=== PATIENT | male | born 1985 | race Hispanic/Latino ===

== ENCOUNTER 2021-12-10 20:00 | Emergency (ER) | payer OTHER ==
[2021-12-10 20:41] LABS: HEMATOCRIT 43.2 % (39.0-50.0); HEMOGLOBIN 14.9 g/dl (14.0-18.0); IMMATURE GRANULOCYTES 0.1 % (0.0-5.0); MEAN CELL VOLUME 92.1 fL CALC (80.0-100.0); MEAN CORPUSCULAR HGB 31.8 pG CALC (26.0-32.0); MEAN CORPUSCULAR HGB CONC 34.5 g/dL CAL (32.0-36.0); NEUT# 6.01 thou/uL (1.82-7.42); RED BLOOD COUNT 4.69 mill/uL (4.70-6.10); RED CELL DISTRI WIDTH 12.5 % (11.5-15.5)
[2021-12-10 20:43] LABS: URINE BILIRUBIN - DIPSTICK NEGATIVE (NEGATIVE); URINE BLOOD DIPSTICK NEGATIVE (NEGATIVE); URINE COLOR YELLOW; URINE GLUCOSE - DIPSTICK NEGATIVE (NEGATIVE); URINE KETONE NEGATIVE (NEGATIVE); URINE LEUK ESTERASE NEGATIVE (NEGATIVE); URINE PROTEIN - DIPSTICK NEGATIVE (NEG-TRACE); URINE SPECIFIC GRAVITY >=1.030; URINE UROBILINOGEN - DIPSTICK 0.2 E.U./dL (0.2)
[2021-12-10 20:45] LABS: URINE NITRITE - DIPSTICK NEGATIVE (Negative)
[2021-12-10 20:55] LABS: ALBUMIN 4.1 g/dL (3.2-5.0); ALKALINE PHOSPHATASE 121 u/l (38-126); ANION GAP 13 (6-22 (CALC)); BILIRUBIN, TOTAL 0.4 mg/dL (0.0-1.4); BUN 11 mg/dL (9-20); BUN/CREATININE RATIO 12 (12-20 (CALC)); CARBON DIOXIDE 23 mmol/l (22-30); CHLORIDE 107 mmol/l (95-108); CREATININE 0.9 mg/dL (0.7-1.3); GFR > 60 ML/MIN (>=60 (CALC)); GFR FOR AFR.AMER. > 60 ML/MIN (>=60 (CALC)); POTASSIUM 3.6 mmol/l (3.5-5.1); SGOT/AST 27 u/l (17-59); SODIUM 140 mmol/l (137-146); TOTAL PROTEIN 7.1 g/dL (6.3-8.2)
[2021-12-10 21:06] LABS: MYOGLOBIN 21 ng/mL (0 - 121)
[2021-12-10] MEDS ORDERED: MECLIZINE25 MG PO (21:33)
[2021-12-10] MEDS ORDERED: VOLTAREN75 MG PO (21:33)
[2021-12-10 21:37] VITALS: BP 138/73
== END 2021-12-10 21:45 | disposition home or self-care (01) ==
LOC: ED 20:00
PROVIDERS: Family Medicine
DX: R42 Dizziness and giddiness (principal); R53.1 Weakness; G56.01 Carpal tunnel syndrome, right upper limb; G56.21 Lesion of ulnar nerve, right upper limb; Z20.822 Contact with and (suspected) exposure to COVID-19

== ENCOUNTER 2021-12-14 15:59 | Emergency (ER) | payer OTHER ==
[~2021-12-14] VITALS: Ht 180.3 cm; Wt 118.0 kg
[~2021-12-14 15:59] MED LIST: MECLIZINE25 MG PO; VOLTAREN75 MG PO
[2021-12-14 17:41] VITALS: BP 117/88
[2021-12-14] MEDS ORDERED: MAXITROL0.1 % OS (18:44)
[2021-12-14 18:59] VITALS: BP 117/88
== END 2021-12-14 18:59 | disposition home or self-care (01) ==
LOC: ED 15:59
DX: H10.12 Acute atopic conjunctivitis, left eye (principal)

== ENCOUNTER 2022-07-08 14:39 | Emergency (ER) | payer OTHER ==
[~2022-07-08] VITALS: Ht 180.3 cm; Wt 117.9 kg
[~2022-07-08 14:39] MED LIST changes: +MAXITROL0.1 % OS
[2022-07-08 15:01] VITALS: BP 122/81
[2022-07-08 15:30] VITALS: BP 127/88
[2022-07-08] MEDS ORDERED: NAPRELAN500 MG PO (15:55)
[2022-07-08] MEDS ORDERED: OMNICEF300 M1 PO (15:55)
[2022-07-08 15:59] VITALS: BP 127/88
== END 2022-07-08 16:11 | disposition home or self-care (01) ==
LOC: ED 14:39
DX: H66.91 Otitis media, unspecified, right ear (principal); I89.0 Lymphedema, not elsewhere classified

== ENCOUNTER 2022-09-01 00:41 | Emergency (ER) | payer OTHER ==
[~2022-09-01] VITALS: Ht 180.3 cm; Wt 118.2 kg
[~2022-09-01 00:41] MED LIST changes: +NAPRELAN500 MG PO; +OMNICEF300 M1 PO
[2022-09-01 00:50] VITALS: BP 132/90
[2022-09-01] MEDS ORDERED: NAPROXEN250 MG PO (01:00)
[2022-09-01] MEDS ORDERED: TIZANIDINE HCL6 MG PO (01:00)
[2022-09-01] MEDS ORDERED: AMOX/K CLAV875 M1 PO (01:50)
[2022-09-01] MEDS ORDERED: TRAMADOL HCL50 MG PO (01:50)
[2022-09-01] MEDS ORDERED: MOTRIN800 MG PO (01:50)
[2022-09-01 01:53] VITALS: BP 132/90
== END 2022-09-01 01:57 | disposition home or self-care (01) ==
LOC: ED 00:41
DX: S71.151A Open bite, right thigh, initial encounter (principal); S61.452A Open bite of left hand, initial encounter; S61.552A Open bite of left wrist, initial encounter; W54.0XXA Bitten by dog, initial encounter; Y93.89 Activity, other specified; Y92.009 Unspecified place in unspecified non-institutional (private) residence as the place of occurrence of the external cause

== ENCOUNTER 2023-01-04 12:42 | Emergency (ER) | payer OTHER ==
[2023-01-04] VITALS (9 sets, daily range): BP systolic 101–123; BP diastolic 64–86
[~2023-01-04] VITALS: Ht 180.3 cm; Wt 122.5 kg
[~2023-01-04 12:42] MED LIST changes: +AMOX/K CLAV875 M1 PO; +MOTRIN800 MG PO; +NAPROXEN250 MG PO; +TIZANIDINE HCL6 MG PO; +TRAMADOL HCL50 MG PO
[2023-01-04 13:52] LABS: BASO% 0.4 % (0-3); EOS% 4.6 % (0-8); HEMOGLOBIN 16.4 g/dl (14.0-18.0); IMMATURE GRANULOCYTES 0.1 % (0.0-5.0); LYMPH% 32.9 % (15-41); MEAN CELL VOLUME 91.8 fL CALC (80.0-100.0); MEAN CORPUSCULAR HGB 30.6 pG CALC (26.0-32.0); MEAN CORPUSCULAR HGB CONC 33.3 g/dL CAL (32.0-36.0); NEUT# 3.77 thou/uL (1.82-7.42); RED BLOOD COUNT 5.36 mill/uL (4.70-6.10); RED CELL DISTRI WIDTH 13.3 % (11.5-15.5)
[2023-01-04 14:02] LABS: ALBUMIN 4.8 g/dL (3.2-5.0); ALKALINE PHOSPHATASE 95 u/l (38-126); ANION GAP 14 (6-22 (CALC)); BILIRUBIN, TOTAL 0.6 mg/dL (0.2-1.3); BUN 10 mg/dL (9-20); BUN/CREATININE RATIO 8 (12-20 (CALC)); CARBON DIOXIDE 24 mmol/l (22-30); CHLORIDE 108 mmol/l (95-108); CREATININE 1.2 mg/dL (0.7-1.3); GFR FOR AFR.AMER. > 60 ML/MIN (>=60 (CALC)); GFR OTHER RACES > 60 ML/MIN (>=60 (CALC)); LIPASE 70 u/l (23-300); SGOT/AST 43 u/l (17-59); SODIUM 142 mmol/l (137-146); TOTAL PROTEIN 7.5 g/dL (6.3-8.2)
[2023-01-04 14:04] LABS: HEMATOCRIT 49.2 % (39.0-50.0)
== END 2023-01-04 17:30 | disposition home or self-care (01) ==
LOC: ED 12:42
PROVIDERS: Family Medicine
DX: A08.39 Other viral enteritis (principal)

== ENCOUNTER 2023-11-19 11:14 | Emergency (ER) | payer OTHER ==
[~2023-11-19] VITALS: Ht 180.3 cm; Wt 127.0 kg
[2023-11-19] MEDS ORDERED: ACETAMINOPHEN 500 MG TAB PO ONE (11:55)
[2023-11-19] MEDS ORDERED: TAM75CAP PO (14:04)
[2023-11-19] MEDS ORDERED: PREDNISONE20 MG PO (14:04)
[2023-11-19] MEDS ORDERED: predniSONE 20 MG/TAB PO ONE (14:05)
[2023-11-19] MEDS ORDERED: KETOROLAC TROMETHAMINE 30 MG/ML SDV IM ONE (14:05)
[2023-11-19] MEDS ORDERED: ONDANSETRON 4 MG/TAB ODT SL ONE (14:05)
[2023-11-19] MEDS ORDERED: PROAIR HFA IN (14:05)
[2023-11-19 14:48] VITALS: BP 144/87
== END 2023-11-19 14:49 | disposition home or self-care (01) ==
LOC: ED 11:14
DX: J10.1 Influenza due to other identified influenza virus with other respiratory manifestations (principal); Z20.822 Contact with and (suspected) exposure to COVID-19

== ENCOUNTER 2023-11-21 16:57 | Emergency (ER) | payer OTHER ==
[~2023-11-21] VITALS: Ht 180.3 cm; Wt 122.0 kg
[2023-11-21] VITALS (9 sets, daily range): BP systolic 117–126; BP diastolic 75–85
[~2023-11-21 16:57] MED LIST changes: +PREDNISONE20 MG PO; +PROAIR HFA IN; +TAM75CAP PO
[2023-11-21] MEDS ORDERED: MAGNESIUM SULFATE HEPTAHYDRATE 50 ML IV ONE (18:10)
[2023-11-21] MEDS ORDERED: SODIUM CHLORIDE 0.9% 1,000 ML IV ONE (18:10)
[2023-11-21] MEDS ORDERED: IPRATROPIUM-Albuterol 0.5MG-2.5MG/3 ML NEB ONE ×2 (18:10)
[2023-11-21] MEDS ORDERED: methylPREDNISolone SODIUM SUCC 125 MG/2 ML SDV IV ONE (18:10)
[2023-11-21 18:36] LABS: BASO% 0.5 % (0-3); EOS% 0.3 % (0-8); HEMOGLOBIN 16.7 g/dl (14.0-18.0); IMMATURE GRANULOCYTES 0.3 % (0.0-5.0); LYMPH% 29.3 % (15-41); MEAN CORPUSCULAR HGB 31.7 pG CALC (26.0-32.0); MEAN CORPUSCULAR HGB CONC 34.1 g/dL CAL (32.0-36.0); MONO% 12.2 % (2-13); NEUT# 3.81 thou/uL (1.82-7.42); NEUT% 57.4 % (42-76); RED BLOOD COUNT 5.27 mill/uL (4.70-6.10); RED CELL DISTRI WIDTH 12.8 % (11.5-15.5)
[2023-11-21 19:04] LABS: ALBUMIN 4.5 g/dL (3.2-5.0); ALKALINE PHOSPHATASE 91 u/l (38-126); ANION GAP 12 (6-22 (CALC)); BILIRUBIN, TOTAL 0.5 mg/dL (0.2-1.3); BUN 18 mg/dL (9-20); BUN/CREATININE RATIO 14 (12-20 (CALC)); CARBON DIOXIDE 25 mmol/l (22-30); CHLORIDE 107 mmol/l (95-108); CREATININE 1.3 mg/dL (0.7-1.3); GFR FOR AFR.AMER. > 60 ML/MIN (>=60 (CALC)); GFR OTHER RACES > 60 ML/MIN (>=60 (CALC)); POTASSIUM 4.1 mmol/l (3.5-5.1); SGOT/AST 52 u/l (17-59); SODIUM 140 mmol/l (137-146); TOTAL PROTEIN 7.6 g/dL (6.3-8.2)
[2023-11-21] MEDS ORDERED: guaiFENesin-CODEINE 200-20 MG/10 ML UDC PO ONE (20:50)
[2023-11-21] MEDS ORDERED: AMOX/K CLAV875 M1 PO (22:57)
== END 2023-11-21 23:07 | disposition home or self-care (01) ==
LOC: ED 16:57
PROVIDERS: Family Medicine
DX: J10.1 Influenza due to other identified influenza virus with other respiratory manifestations (principal); Z20.822 Contact with and (suspected) exposure to COVID-19
CPT/HCPCS: J3475

== ENCOUNTER 2024-07-03 17:04 | Emergency (ER) | payer OTHER ==
[~2024-07-03] VITALS: Ht 180.3 cm; Wt 263.0 kg
[2024-07-03 17:47] LABS: URINE BILIRUBIN - DIPSTICK Negative (NEGATIVE); URINE BLOOD DIPSTICK Negative (NEGATIVE); URINE COLOR Yellow; URINE GLUCOSE - DIPSTICK Negative (NEGATIVE); URINE KETONE Negative (NEGATIVE); URINE LEUK ESTERASE Negative (NEGATIVE); URINE NITRITE - DIPSTICK Negative (Negative); URINE PH 5.5 (4.5-8.0); URINE PROTEIN - DIPSTICK Negative (NEG-TRACE); URINE SPECIFIC GRAVITY >=1.030; URINE UROBILINOGEN - DIPSTICK 0.2 E.U./dL (0.2)
[2024-07-03 17:47] LABS: BASO% 0.4 % (0-3); EOS% 2.5 % (0-8); HEMATOCRIT 46.6 % (39.0-50.0); HEMOGLOBIN 15.9 g/dl (14.0-18.0); IMMATURE GRANULOCYTES 0.1 % (0.0-5.0); LYMPH% 29.3 % (15-41); MEAN CELL VOLUME 92.1 fL CALC (80.0-100.0); MEAN CORPUSCULAR HGB 31.4 pG CALC (26.0-32.0); MEAN CORPUSCULAR HGB CONC 34.1 g/dL CAL (32.0-36.0); MONO% 7.5 % (2-13); NEUT# 6.16 thou/uL (1.82-7.42); NEUT% 60.2 % (42-76); RED BLOOD COUNT 5.06 mill/uL (4.70-6.10); RED CELL DISTRI WIDTH 12.6 % (11.5-15.5)
[2024-07-03 17:54] LABS: ALBUMIN 4.9 g/dL (3.2-5.0); CREATININE 1.1 mg/dL (0.7-1.3); POTASSIUM 4.2 mmol/l (3.5-5.1); TOTAL PROTEIN 8.1 g/dL (6.3-8.2)
[2024-07-03 21:02] VITALS: BP 125/84
== END 2024-07-03 21:06 | disposition home or self-care (01) ==
LOC: ED 17:04
PROVIDERS: Family Medicine
DX: R10.32 Left lower quadrant pain (principal)
CPT/HCPCS: Q9967

== ENCOUNTER 2024-11-14 13:17 | Emergency (ER) | payer OTHER ==
[~2024-11-14] VITALS: Ht 180.3 cm; Wt 97.0 kg
[2024-11-14] MEDS ORDERED: PREDNISONE20 MG PO (14:48)
[2024-11-14] MEDS ORDERED: ALBUTEROL SUL0.083 % IN ×2 (14:48→18:23)
[2024-11-14 15:06] VITALS: BP 117/89
== END 2024-11-14 15:12 | disposition home or self-care (01) ==
LOC: ED 13:17
DX: J40 Bronchitis, not specified as acute or chronic (principal); Z20.822 Contact with and (suspected) exposure to COVID-19